=== PATIENT | male | born 1935 | race Caucasian/White ===

== ENCOUNTER 2016-08-21 12:43 | Emergency (ER) | payer MEDICARE ==
[~2016-08-21] VITALS: Ht 175.3 cm; Wt 95.3 kg
[2016-08-21 12:49] VITALS: BP 156/115
[2016-08-21] MEDS ORDERED: DOCUSATE 50 MG/5 ML ORAL SOL OT ONE (13:00)
[2016-08-21] MEDS ORDERED: DEXAMETHASONE 4 MG/ML, 5ML ONE (13:07)
[2016-08-21] MEDS ORDERED: DOCUSATE 50 MG/5 ML ORAL SOL ONE (13:09)
== END 2016-08-21 13:52 | disposition home or self-care (01) ==
LOC: ED 13:16
DX: T16.2XXA Foreign body in left ear, initial encounter (principal); H60.502 Unspecified acute noninfective otitis externa, left ear; I10 Essential (primary) hypertension; X58.XXXA Exposure to other specified factors, initial encounter; Y93.89 Activity, other specified; Y99.8 Other external cause status; Y92.89 Other specified places as the place of occurrence of the external cause
CPT/HCPCS: 69200